=== PATIENT | female | born 1995 | race Caucasian/White ===

== ENCOUNTER 2022-10-06 14:26 | Emergency (ER) | payer BC, SELFPAY ==
[2022-10-06 14:50] VITALS: BP 111/70; PULSE 105; RESP 16; TEMP 37.1; O2SAT 100
--- NOTE | 2022-10-06 14:51 | ED.GENADULT ---
HPI - General Adult General Chief complaint: Back Pain/Injury Stated complaint: injury Time Seen by Provider: 10/06/22 14:51 Source: patient and RN notes reviewed Mode of arrival: ambulatory Limitations: no limitations History of Present Illness HPI narrative: 27-year-old female presents to the [facility] with concerns of left flank, abdominal pain and urinating blood for 2 days. Has tried taking azo Reports some shortness of breath. Last menstrual period 2 weeks ago denies chance of Denies fevers. Onset (ago): day(s) (2) Related Data Allergies Allergy/AdvReac Type Severity Reaction Status Date / Time No Known Allergies Allergy Verified 10/06/22 14:52 Review of Systems Review of Systems: All systems reviewed & are unremarkable except as noted in HPI and below Constitutional: Constitutional: Reports no additional constitutional complaints Eyes: Eyes: Reports no additional eye complaints ENT: Reports system reviewed and no additional complaints, except as documented Cardiovascular: Cardiovascular: Reports no additional cardiovascular complaints, Denies chest pain and Denies dyspnea Respiratory: Respiratory: Reports as per HPI, Denies chest congestion, Denies cough, Reports dyspnea and Denies wheezing Gastrointestinal: Gastrointestinal: Reports as per HPI, Reports abdominal pain, Denies nausea and Denies vomiting Genitourinary: Genitourinary: Reports as per HPI, Reports hematuria and Reports flank pain (Left) Musculoskeletal: Musculoskeletal: Reports no additional musculoskeletal complaints Integumentary/Breasts: Skin/Breast: Reports system reviewed and no additional complaints, except as docu Neurologic: Reports system reviewed and no additional complaints, except as documented Psychiatric: Psychiatric: Reports no additional psychiatric complaints Allergic/Immunologic: Allergic/Immunologic: Reports no additional allergic/immunologic complaints PMFSH Surgical History Surgical History (Updated 10/06/22 @ 15:00 by Joselin Gregorio APRN) Hx of cholecystectomy Social History Social History (Updated 10/06/22 @ 15:00 by Joselin Gregorio APRN) Living arrangements: with family Gender identity (if verbalized by the patient): Female Comments At the time of my signature, I reviewed and agree with the nursing past medical, surgical, social, and family history. There is no relevant family history pertinent to the patient complaint. Exam Const: General: cooperative, well developed, alert, acute distress moderate (Pain), anxious, uncomfortable, well groomed and well nourished Nutritional Appearance: well nourished Orientation/consciousness: patient oriented x3 Limitations: no limitations HENMT: Head: normal to inspection Ears: hearing grossly normal bilaterally and external ears normal Face/Nose/Sinus: Normal external nose present, Normal nares present, Normal nasal mucous membranes and turbinates present and normal facial exam Face and sinus: normal facial exam Mouth: Yes Normal oral and palatal mucosa present, Yes lip normal and Yes moist mucous membranes Eyes: General: appearance normal, both eyes and all related structures Alignment and Position: alignment normal Periorbital: periorbital findings normal Conjunctivae: conjunctivae normal Pupils: Equal, round and reactive pupils present EOM: EOMs intact bilaterally Neck: Neck: normal visual inspection, full ROM, no lymphadenopathy and no meningeal signs Chest: Chest palpation & inspection: normal inspection of the chest Resp: Effort & Inspection: normal respiratory effort and able to speak in complete sentences Auscultation: clear to auscultation bilaterally, no crackles, no rales, no rhonchi and no wheezes Cardio: Rate: regular rate Rhythm: regular rhythm GI: Inspection: distended GI Palp: Yes Soft to palpation and Yes Tenderness to palpation present (GI) (left side) Auscultation: normal bowel sounds : General: Yes CVA tenderness on
== END 2022-10-06 15:00 | disposition short-term general hospital (02) ==
PROVIDERS: Emergency Provider Nurse Practitioner
DX: R10.9 Unspecified abdominal pain (principal); R06.02 Shortness of breath; R31.9 Hematuria, unspecified
CPT/HCPCS: 99212; G0463

== ENCOUNTER 2022-10-06 15:14 | Emergency (ER) | payer SELFPAY ==
[2022-10-06 15:38] VITALS: BP 128/69; PULSE 103; RESP 16; TEMP 36.7; O2SAT 100
--- NOTE | 2022-10-06 17:40 | PC.NURSE ---
Pt left ED due to wait time
== END 2022-10-06 19:15 | disposition left against medical advice (07) ==
LOC: ANHED 17:46
DX: R10.9 Unspecified abdominal pain (principal)
CPT/HCPCS: 99199